=== PATIENT | male | born 1955 | race Caucasian/White ===

== ENCOUNTER → 2020-01-16 09:10 | Outpatient (CLI) | payer MEDICARE, OTHER, SELFPAY ==
--- NOTE | 2020-01-16 | DI.US.S_ITS ---
PROCEDURE: US ABD AORTA ANEURYSM SCREEN INDICATIONS: AAA screening TECHNIQUE: Real time scanning was performed of the aorta and iliac arteries, with image documentation. COMPARISON: None. FINDINGS: Suboptimal visualization of the aorta due to overlying bowel gas. Aorta: Proximal aortic diameter measures 2.3 x 2.3 cm. Mid-aorta measures 1.9 x 1.9 cm. Distal aortic diameter is 2 x 2 cm. Iliac arteries: Right common iliac artery measures 0.8 x 0.8 cm. Left common iliac artery measures 1.1 x 1 cm. IMPRESSION: No abdominal aortic aneurysm. Dictated by: Kevon Kerr M.D. on 01/16/2020 at 11:47 Approved by: Kevon Kerr M.D. on 01/16/2020 at 11:48
== END ==
PROVIDERS: Family Provider Family Medicine; PCP Family Medicine; Referring Provider Family Medicine; Visit Provider Family Medicine
DX: Z13.6 Encounter for screening for cardiovascular disorders (principal)
CPT/HCPCS: 76706

== ENCOUNTER → 2020-06-04 09:11 | Outpatient (CLI) | payer MEDICARE, OTHER, SELFPAY ==
[2020-06-04 09:54] LABS: Add Manual Diff / Slide Review NO; Basophils Absolute Auto 100 /uL (0-100); Eosinophils Absolute Auto 200 /uL (0-450); Eosinophils Percent Auto 2.7 % (2-4); Hemoglobin 15.3 g/dL (13.5-17.5); Lymphocytes Absolute Auto 1900 /uL (1100-4500); Lymphocytes Percent Auto 33.7 % (25-40); Mean Corpuscular Hemoglobin 30.3 PG (26-34); Mean Corpuscular Volume 89.1 fL (80-100); Monocytes Absolute Auto 500 /uL (0-900); Monocytes Percent Auto 9.2 % (3-14); Neutrophils Absolute Auto 3100 /uL (1500-7000); Neutrophils Percent Auto 53.4 % (50-75); Platelet Count 232 X10^3/uL (150-400); Red Blood Cell Count 5.06 X10^6/uL (4.5-5.9); Red Cell Distribution Width 13.4 % (11.6-14.8); White Blood Cell Count 5.8 X10^3/uL (4.5-11.0)
[2020-06-04 10:04] LABS: Alanine Aminotransferase 20 IU/L (<50); Albumin 4.6 g/dL (3.5-5.0); Albumin Globulin Ratio 1.6 (1.0-2.8); Alkaline Phosphatase 49 U/L (38-126); Aspartate Aminotransferase 22 IU/L (17-59); Bilirubin Total 1.2 mg/dL (0.2-1.3); Blood Urea Nitrogen 21 mg/dL (9-20); Calcium 9.8 mg/dL (8.4-10.2); Carbon Dioxide 28 mmol/L (22-32); Chloride 106 mmol/L (98-107); Estimated Glomerular Filt Rate > 60.0 mL/min (>60); Globulin 2.9 g/dL (1.7-4.1); Glucose 103 mg/dL (80-110); HEMOLYSIS < 15 (0-50); Potassium 4.5 mmol/L (3.4-5.1); Sodium 138 mmol/L (137-145); Total Protein 7.5 g/dL (6.3-8.2)
[2020-06-04 10:57] LABS: Thyroid Stimulating Hormone 2.08 uIU/mL (0.47-4.68)
[2020-06-04 11:09] LABS: Folate 9.8 ng/mL (2.76-20.0); Vitamin B12 822 pg/mL (239-931)
[2020-06-05 06:14] LABS: Homocysteine 12.3 umol/L (0.0-17.2)
[2020-06-05 23:52] LABS: Methylmalonic Acid,Serum 129 nmol/L (0-378)
== END ==
PROVIDERS: Family Provider Family Medicine; PCP Family Medicine; Referring Provider Family Medicine; Visit Provider Family Medicine
DX: R20.2 Paresthesia of skin (principal)
CPT/HCPCS: 36415; 80053; 82607; 82746; 83090; 83921; 84443; 85025

== ENCOUNTER → 2020-06-25 14:36 | Outpatient (CLI) | payer MEDICARE, OTHER, SELFPAY ==
[2020-06-26 10:47] LABS: COVID19 -Nasal RAPID Negative (Negative)
== END ==
PROVIDERS: Family Provider Family Medicine; PCP Family Medicine; Visit Provider Physician Assistant
DX: Z20.822 Contact with and (suspected) exposure to COVID-19 (principal)
CPT/HCPCS: 87635; C9803

== ENCOUNTER → 2020-11-05 14:53 | Outpatient (CLI) | payer MEDICARE, OTHER, SELFPAY ==
[2020-11-05 21:11] LABS: COVID19 - ORCAS (NP or Nasal) Negative (Negative)
== END ==
PROVIDERS: Family Provider Family Medicine; PCP Family Medicine; Visit Provider Physician Assistant
DX: Z20.822 Contact with and (suspected) exposure to COVID-19 (principal)
CPT/HCPCS: C9803; U0003

== ENCOUNTER → 2022-12-15 11:45 | Outpatient (CLI) | payer MEDICARE, OTHER, SELFPAY ==
--- NOTE | 2022-12-15 11:48 | DI.RAD.S_ITS ---
PROCEDURE: XR CERVICAL SPINE 4V OR 5V INDICATIONS: CERVICAL AND LUMBAR RADICULOPATHY TECHNIQUE: 5 views of the cervical spine were acquired. COMPARISON: None. FINDINGS: Bones: Moderate degenerative changes. Likely degenerative trace retrolisthesis of C5 on C6. Vertebral body heights are well maintained. The retrolisthesis reduces on flexion . Overall range of motion is limited. Normal C1 on C2 alignment on odontoid view. Soft tissues: Prevertebral soft tissues are normal in thickness. IMPRESSION: Moderate degenerative changes. Trace retrolisthesis of C5 on C6 reduces on flexion. Range of motion is limited. If there is high concern for further derangement, consider MRI evaluation. Dictated by: Julio Cesar Chavez M.D. on 12/15/2022 at 15:54 Approved by: Julio Cesar Chavez M.D. on 12/15/2022 at 15:55
--- NOTE | 2022-12-15 11:48 | DI.RAD.S_ITS ---
PROCEDURE: XR LUMBAR SPINE 2-3V INDICATIONS: CERVICAL AND LUMBAR RADICULOPATHY TECHNIQUE: 3 views of the lumbar spine were acquired. COMPARISON: None. FINDINGS: Bones: Possible transitional anatomy. 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 The lowest vertebral body on this study is considered to be L5. Minor wedging of the T12 vertebral body, nonacute appearing. Trace multilevel spondylolisthesis, with trace retrolisthesis of L1 on L2, L2 on L3, L3 on L4 and anterolisthesis of L4 on L5. Vertebral body heights are well maintained. No evidence of traumatic subluxation. Overall [id number] degenerative changes. Soft tissues: No suspicious calcifications. IMPRESSION: [id number] degenerative changes. Wedging of the T12 vertebral body, nonacute appearing. If there is high concern for further derangement, consider MRI evaluation. Possible transitional anatomy please confirm numbering prior to any intervention. Dictated by: Julio Cesar Chavez M.D. on 12/15/2022 at 15:57 Approved by: Julio Cesar Chavez M.D. on 12/15/2022 at 16:00
== END ==
PROVIDERS: Family Provider Family Medicine; PCP Family Medicine; Referring Provider Family Medicine; Visit Provider Family Medicine
DX: M47.22 Other spondylosis with radiculopathy, cervical region (principal); M47.26 Other spondylosis with radiculopathy, lumbar region
CPT/HCPCS: 72050; 72100